=== PATIENT | female | born 1955 | race Caucasian/White ===

== ENCOUNTER 2016-07-08 07:35 | Inpatient (IN) | payer MEDICARE, BC ==
[~2016-07-08 07:35] MED LIST: ALPRAZOLAM XR3 MG PO; ALPRAZOLAM0.5 M3 PO; ANTI-DIARRHEAL2 M2 PO; ATENOLOL50 MG PO; AZITHROMYCIN250 M1 PO; DARVOCET-N 1001 TAB PO; GAVILAX17 G2 PO; HYDROCODON-ACE1 EA16 PO; KLONOPIN2 M1 PO; LATANOPROST2.5 M1 OP; LINZESS290 MC1 PO; LISINOPRIL5 M1; MAGNESIUM CITR296 M1 PO; MIRALAX17 G2 PO; PREDNISONE20 M1 PO; QUETIAPINE FUM400 M1 PO; SEROQUEL300 MG PO; TRAMADOL HCL50 M2; TRAMADOL HCL50 MG PO; VENTOLIN HFA18 G2 INH; VENTOLIN HFA18 G2 PO; XALATAN2.5 ML OP; ZOFRAN ODT4 MG PO; ZOLPIDEM TARTRA10 MG PO
[2016-07-08] MEDS ORDERED: XARELTO10 M1 PO (07:47)
[2016-07-08] MEDS ORDERED: PRINIVIL10 M1 PO (07:55)
[2016-07-08] MEDS ORDERED: XARELTO20 M1 PO (07:56)
[2016-07-08] MEDS ORDERED: CATAPRES-TTS 11 EACH TP (08:03)
[2016-07-08] MEDS ORDERED: NEURONTIN300 M1 PO (08:03)
[2016-07-08] MEDS ORDERED: PROPRANOLOL HCL80 M3 PO (08:03)
[2016-07-08 08:36] LABS: BASO % 0.6 % (0-2); EOS % 1.6 % (0-7); EOSINOPHIL ABSOLUTE COUNT 0.1 tho/cmm (0.0-0.7); HCT-HEMATOCRIT 34.1 % (34.0-49.0); HGB-HEMOGLOBIN 11.1 gm/dl (12.0-15.5); IMMATURE GRANULOCYTES ABSOLUTE 0.02 tho/cmm (0-0.03); IMMATURE GRANULOCYTES PERCENT 0.4 % (0-0.3); LYMPH % 33.7 % (20-45); LYMPH ABSOLUTE COUNT 1.7 tho/cmm (0.8-4.5); MCHC MEAN CORPUSCULAR HGB CONC 32.6 % (32.0-36.0); MCV (MEAN CELL VOLUME) 101.5 fl (82.0-96.0); MEAN PLATELET VOLUME 9.9 cmc (9.4-12.4); MONO % 8.4 % (0-12); MONOCYTE ABSOLUTE COUNT 0.4 tho/cmm (0.0-1.2); NEUTROPHIL ABSOLUTE COUNT 2.8 tho/cmm (1.6-8.0); NEUTROPHIL-AUTOMATED 2.8 tho/cmm (1.6-8.0); NEUTROPHILS % 55.3 % (40-80); PLATELET COUNT 168 tho/cmm (150-450); RED BLOOD COUNT 3.36 mil/cmm (4.00-5.20); RED CELL DISTRIBUTION WIDTH 14.5 % (12.4-16.4); WHITE BLOOD COUNT 5.1 tho/cmm (4.0-10.0)
[2016-07-08 08:41] LABS: URINE BILIRUBIN SMALL (NEG); URINE BLOOD SMALL (NEG); URINE GLUCOSE (UA) NEGATIVE (NEG); URINE KETONE SMALL (NEG); URINE LEUKOCYTE ESTERASE POSITIVE (NEG); URINE NITRITE POSITIVE (NEG); URINE PROTEIN SMALL (NEG)
[2016-07-08 08:42] LABS: URINE APPEARANCE CLOUDY; URINE COLOR YELLOW
[2016-07-08 08:46] LABS: ANION GAP 8 mmol/L (0-20); BLOOD UREA NITROGEN 20 mg/dl (6-24); CALCIUM 8.2 mg/dl (8.5-10.5); CARBON DIOXIDE-VENOUS 28 mmol/L (22-32); CHLORIDE 111 mmol/l (96-110); CREATININE 0.82 mg/dl (0.50-1.10); GLUCOSE 132 mg/dL (70-110); POTASSIUM 4.4 mmol/L (3.7-5.1); SODIUM 143 mmol/L (135-145); eGFR VALUE FOR BLACK 89 mL/Min
[2016-07-08 08:48] LABS: URINE BACTERIA 4+; URINE WBC 30-40 /[HPF] (0-5)
[2016-07-08 08:53] LABS: INR 1.2 INR (0.9-1.1); PROTHROMBIN TIME 14.4 SECONDS (9.0-13.6)
[2016-07-08 09:09] LABS: PROCALCITONIN <0.05 ng/ml (0.05-0.09)
[2016-07-08] MEDS ORDERED: ROBAFEN-DM SYR118 ML PO (09:10)
[2016-07-08] MEDS ORDERED: ASPIRIN325 M3 PO (09:16)
[2016-07-09 05:48] LABS: BASO % 0.7 % (0-2); EOS % 3.4 % (0-7); EOSINOPHIL ABSOLUTE COUNT 0.1 tho/cmm (0.0-0.7); HCT-HEMATOCRIT 33.7 % (34.0-49.0); HGB-HEMOGLOBIN 11.1 gm/dl (12.0-15.5); IMMATURE GRANULOCYTES ABSOLUTE 0.01 tho/cmm (0-0.03); IMMATURE GRANULOCYTES PERCENT 0.2 % (0-0.3); LYMPH % 37.6 % (20-45); LYMPH ABSOLUTE COUNT 1.5 tho/cmm (0.8-4.5); MCH (MEAN CORPUSCULAR HGB) 33.5 pg (28.0-32.0); MCHC MEAN CORPUSCULAR HGB CONC 32.9 % (32.0-36.0); MCV (MEAN CELL VOLUME) 101.8 fl (82.0-96.0); MEAN PLATELET VOLUME 9.9 cmc (9.4-12.4); MONO % 11.1 % (0-12); MONOCYTE ABSOLUTE COUNT 0.5 tho/cmm (0.0-1.2); NEUTROPHIL ABSOLUTE COUNT 1.9 tho/cmm (1.6-8.0); NEUTROPHIL-AUTOMATED 1.9 tho/cmm (1.6-8.0); PLATELET COUNT 149 tho/cmm (150-450); RED BLOOD COUNT 3.31 mil/cmm (4.00-5.20); RED CELL DISTRIBUTION WIDTH 14.2 % (12.4-16.4); WHITE BLOOD COUNT 4.1 tho/cmm (4.0-10.0)
[2016-07-09 05:59] LABS: ANION GAP 10 mmol/L (0-20); BLOOD UREA NITROGEN 12 mg/dl (6-24); CALCIUM 8.1 mg/dl (8.5-10.5); CARBON DIOXIDE-VENOUS 26 mmol/L (22-32); CHLORIDE 112 mmol/l (96-110); CREATININE 0.74 mg/dl (0.50-1.10); GLUCOSE 92 mg/dL (70-110); POTASSIUM 4.5 mmol/L (3.7-5.1); SODIUM 143 mmol/L (135-145); eGFR VALUE FOR BLACK >90 mL/Min
[2016-07-10] MEDS ORDERED: CEFTIN250 MG/51 PO (16:21)
[2016-07-10] MEDS ORDERED: CEFUROXIME250 M1 PO (16:22)
[2016-08-20] MEDS ORDERED: FLOMAX0.4 M1 PO (14:38)
[2016-08-20] MEDS ORDERED: TAB-A-VITE1 EAC1 PO (14:39)
[2016-08-20] MEDS ORDERED: TYLENOL EXTRA500 M1 PO (14:54)
[2016-08-20] MEDS ORDERED: ASPIRIN325 M3 PO (14:55)
[2016-08-22] MEDS ORDERED: STOP THE FOLLOWING: (10:23)
[2016-09-03] MEDS ORDERED: BACTRIM DS TAB1 EAC2 PO (12:15)
[2016-09-03] MEDS ORDERED: CULTURELLE1 EAC1 PO (12:16)
[2016-09-03] MEDS ORDERED: DELTASONE20 MG PO (12:22)
== END 2016-07-10 17:17 | disposition other institution (70) | DRG 690 ==
LOC: EDMED 07:35 → EMR2 11:52 → 5WE 14:44
PROVIDERS: Emergency Medicine; ADMIT Internal Medicine
DX: N39.0 Urinary tract infection, site not specified (principal); I95.9 Hypotension, unspecified; E80.1 Porphyria cutanea tarda; B96.1 Klebsiella pneumoniae [K. pneumoniae] as the cause of diseases classified elsewhere; J44.9 Chronic obstructive pulmonary disease, unspecified; E11.9 Type 2 diabetes mellitus without complications; R91.8 Other nonspecific abnormal finding of lung field; R55 Syncope and collapse; F31.9 Bipolar disorder, unspecified; D64.9 Anemia, unspecified; F41.9 Anxiety disorder, unspecified; Z79.82 Long term (current) use of aspirin; Z23 Encounter for immunization
CPT/HCPCS: G0009; G0480; G8987-GO-CJ; G8988-GO-CI; G8989-GO-CJ; J0696; J2543; J3370; J7030; J7050; P9612; Q9967

== ENCOUNTER 2016-07-14 14:14 | Inpatient (IN) | payer MEDICARE, BC ==
[~2016-07-14 14:14] MED LIST changes: +ASPIRIN325 M3 PO; +CATAPRES-TTS 11 EACH TP; +CEFTIN250 MG/51 PO; +CEFUROXIME250 M1 PO; +NEURONTIN300 M1 PO; +PRINIVIL10 M1 PO; +PROPRANOLOL HCL80 M3 PO; +ROBAFEN-DM SYR118 ML PO; +XARELTO10 M1 PO; +XARELTO20 M1 PO
[2016-07-14 14:56] LABS: BASO % 0.3 % (0-2); BASO ABSOLUTE COUNT 0.1 tho/cmm (0.0-0.2); EOS % 0.5 % (0-7); EOSINOPHIL ABSOLUTE COUNT 0.1 tho/cmm (0.0-0.7); HCT-HEMATOCRIT 19.3 % (34.0-49.0); HGB-HEMOGLOBIN 6.4 gm/dl (12.0-15.5); IMMATURE GRANULOCYTES ABSOLUTE 0.15 tho/cmm (0-0.03); IMMATURE GRANULOCYTES PERCENT 0.8 % (0-0.3); LYMPH % 10.9 % (20-45); MCH (MEAN CORPUSCULAR HGB) 33.9 pg (28.0-32.0); MCHC MEAN CORPUSCULAR HGB CONC 33.2 % (32.0-36.0); MCV (MEAN CELL VOLUME) 102.1 fl (82.0-96.0); MONO % 12.4 % (0-12); MONOCYTE ABSOLUTE COUNT 2.2 tho/cmm (0.0-1.2); NEUTROPHIL ABSOLUTE COUNT 13.5 tho/cmm (1.6-8.0); NEUTROPHIL-AUTOMATED 13.5 tho/cmm (1.6-8.0); NEUTROPHILS % 75.1 % (40-80); PLATELET COUNT 253 tho/cmm (150-450); RED BLOOD COUNT 1.89 mil/cmm (4.00-5.20)
[2016-07-14 15:09] LABS: URINE BILIRUBIN NEGATIVE (NEG); URINE BLOOD MODERATE (NEG); URINE GLUCOSE (UA) SMALL (NEG); URINE KETONE SMALL (NEG); URINE LEUKOCYTE ESTERASE POSITIVE (NEG); URINE NITRITE NEGATIVE (NEG); URINE PROTEIN MODERATE (NEG)
[2016-07-14 15:11] LABS: INR 1.6 INR (0.9-1.1); PROTHROMBIN TIME 19.1 SECONDS (9.0-13.6)
[2016-07-14 15:11] LABS: URINE APPEARANCE HAZY; URINE COLOR YELLOW
[2016-07-14 15:16] LABS: URINE AMORPHOUS 1+; URINE BACTERIA 1+; URINE EPITHELIAL CELLS 0 /[HPF] (0-10); URINE RBC 15-20 /[HPF] (0-5)
[2016-07-14 15:18] LABS: ALB/GLOB RATIO 0.6 (0.8-2.0); ALBUMIN 2.8 g/dl (3.5-5.0); ALKALINE PHOSPHATASE 62 U/L (33-138); ALT/SGPT 28 U/L (12-78); BILIRUBIN,TOTAL 0.4 mg/dl (0-1.5); BLOOD UREA NITROGEN 21 mg/dl (6-24); CALCIUM 8.2 mg/dl (8.5-10.5); CARBON DIOXIDE-VENOUS 26 mmol/L (22-32); CHLORIDE 106 mmol/l (96-110); CREATININE 0.88 mg/dl (0.50-1.10); GLUCOSE 126 mg/dL (70-110); SODIUM 141 mmol/L (135-145); eGFR VALUE FOR BLACK 82 mL/Min
[2016-07-14 15:19] LABS: ANION GAP 13 mmol/L (0-20); AST/SGOT 41 U/L (10-40); POTASSIUM 4.1 mmol/L (3.7-5.1)
[2016-07-14 15:33] LABS: PROCALCITONIN 0.14 ng/ml (0.05-0.09)
[2016-07-14 16:13] LABS: BASO % 0.4 % (0-2); EOS % 0.5 % (0-7); EOSINOPHIL ABSOLUTE COUNT 0.1 tho/cmm (0.0-0.7); IMMATURE GRANULOCYTES ABSOLUTE 0.09 tho/cmm (0-0.03); IMMATURE GRANULOCYTES PERCENT 0.9 % (0-0.3); LYMPH % 11.8 % (20-45); LYMPH ABSOLUTE COUNT 1.2 tho/cmm (0.8-4.5); MCV (MEAN CELL VOLUME) 101.2 fl (82.0-96.0); MEAN PLATELET VOLUME 10.2 cmc (9.4-12.4); MONO % 9.1 % (0-12); MONOCYTE ABSOLUTE COUNT 0.9 tho/cmm (0.0-1.2); NEUTROPHIL ABSOLUTE COUNT 7.8 tho/cmm (1.6-8.0); NEUTROPHIL-AUTOMATED 7.8 tho/cmm (1.6-8.0); NEUTROPHILS % 77.3 % (40-80); PLATELET COUNT 148 tho/cmm (150-450); RED BLOOD COUNT 3.32 mil/cmm (4.00-5.20); WHITE BLOOD COUNT 10.1 tho/cmm (4.0-10.0)
[2016-07-14 16:14] LABS: HCT-HEMATOCRIT 33.6 % (34.0-49.0); HGB-HEMOGLOBIN 11.2 gm/dl (12.0-15.5); MCH (MEAN CORPUSCULAR HGB) 33.7 pg (28.0-32.0); MCHC MEAN CORPUSCULAR HGB CONC 33.3 % (32.0-36.0)
[2016-07-14 17:10] LABS: URINE SODIUM-RANDOM 65 mmol/L (20-110)
[2016-07-15 05:24] LABS: BASO % 0.4 % (0-2); EOS % 0.7 % (0-7); EOSINOPHIL ABSOLUTE COUNT 0.1 tho/cmm (0.0-0.7); HCT-HEMATOCRIT 31.6 % (34.0-49.0); HGB-HEMOGLOBIN 10.5 gm/dl (12.0-15.5); IMMATURE GRANULOCYTES ABSOLUTE 0.12 tho/cmm (0-0.03); IMMATURE GRANULOCYTES PERCENT 1.1 % (0-0.3); LYMPH % 13.2 % (20-45); LYMPH ABSOLUTE COUNT 1.4 tho/cmm (0.8-4.5); MCH (MEAN CORPUSCULAR HGB) 33.4 pg (28.0-32.0); MCHC MEAN CORPUSCULAR HGB CONC 33.2 % (32.0-36.0); MCV (MEAN CELL VOLUME) 100.6 fl (82.0-96.0); MEAN PLATELET VOLUME 10.3 cmc (9.4-12.4); MONO % 12.8 % (0-12); MONOCYTE ABSOLUTE COUNT 1.4 tho/cmm (0.0-1.2); NEUTROPHIL ABSOLUTE COUNT 7.6 tho/cmm (1.6-8.0); NEUTROPHIL-AUTOMATED 7.6 tho/cmm (1.6-8.0); NEUTROPHILS % 71.8 % (40-80); PLATELET COUNT 140 tho/cmm (150-450); RED BLOOD COUNT 3.14 mil/cmm (4.00-5.20); RED CELL DISTRIBUTION WIDTH 13.8 % (12.4-16.4); WHITE BLOOD COUNT 10.6 tho/cmm (4.0-10.0)
[2016-07-15 05:32] LABS: ANION GAP 13 mmol/L (0-20); BLOOD UREA NITROGEN 14 mg/dl (6-24); CALCIUM 7.5 mg/dl (8.5-10.5); CARBON DIOXIDE-VENOUS 22 mmol/L (22-32); CHLORIDE 109 mmol/l (96-110); CREATININE 0.62 mg/dl (0.50-1.10); GLUCOSE 132 mg/dL (70-110); POTASSIUM 3.5 mmol/L (3.7-5.1); SODIUM 140 mmol/L (135-145); eGFR VALUE FOR BLACK >90 mL/Min
[2016-07-17 12:49] LABS: URINE BILIRUBIN NEGATIVE (NEG); URINE BLOOD MODERATE (NEG); URINE GLUCOSE (UA) MODERATE (NEG); URINE KETONE NEGATIVE (NEG); URINE LEUKOCYTE ESTERASE POSITIVE (NEG); URINE NITRITE NEGATIVE (NEG); URINE PROTEIN MODERATE (NEG); URINE SPECIFIC GRAVITY 1.015 (1.003-1.030)
[2016-07-17 12:50] LABS: URINE APPEARANCE CLEAR; URINE COLOR DARK YELLOW
[2016-07-17 13:02] LABS: URINE EPITHELIAL CELLS 0-2 /[HPF] (0-10); URINE RBC 0-1 /[HPF] (0-5); URINE WBC 0-2 /[HPF] (0-5)
[2016-07-19 05:19] LABS: BASO % 0.6 % (0-2); BASO ABSOLUTE COUNT 0.1 tho/cmm (0.0-0.2); EOS % 2.4 % (0-7); EOSINOPHIL ABSOLUTE COUNT 0.2 tho/cmm (0.0-0.7); HCT-HEMATOCRIT 32.3 % (34.0-49.0); HGB-HEMOGLOBIN 10.6 gm/dl (12.0-15.5); LYMPH % 14.4 % (20-45); LYMPH ABSOLUTE COUNT 1.5 tho/cmm (0.8-4.5); MCH (MEAN CORPUSCULAR HGB) 33.2 pg (28.0-32.0); MCHC MEAN CORPUSCULAR HGB CONC 32.8 % (32.0-36.0); MCV (MEAN CELL VOLUME) 101.3 fl (82.0-96.0); MEAN PLATELET VOLUME 10.1 cmc (9.4-12.4); MONO % 11.5 % (0-12); MONOCYTE ABSOLUTE COUNT 1.2 tho/cmm (0.0-1.2); NEUTROPHIL ABSOLUTE COUNT 7.3 tho/cmm (1.6-8.0); NEUTROPHIL-AUTOMATED 7.3 tho/cmm (1.6-8.0); NEUTROPHILS % 71.1 % (40-80); PLATELET COUNT 251 tho/cmm (150-450); RED BLOOD COUNT 3.19 mil/cmm (4.00-5.20); RED CELL DISTRIBUTION WIDTH 13.3 % (12.4-16.4); WHITE BLOOD COUNT 10.2 tho/cmm (4.0-10.0)
[2016-07-19 05:36] LABS: ANION GAP 12 mmol/L (0-20); BLOOD UREA NITROGEN 8 mg/dl (6-24); CALCIUM 7.6 mg/dl (8.5-10.5); CARBON DIOXIDE-VENOUS 25 mmol/L (22-32); CHLORIDE 108 mmol/l (96-110); CREATININE 0.53 mg/dl (0.50-1.10); GLUCOSE 134 mg/dL (70-110); POTASSIUM 3.2 mmol/L (3.7-5.1); SODIUM 142 mmol/L (135-145); eGFR VALUE FOR BLACK >90 mL/Min
[2016-07-23] MEDS ORDERED: VANCOMYCIN HCL250 M1 PO (12:35)
[2016-07-23] MEDS ORDERED: FLAGYL500 M1 PO (12:35)
[2016-07-23] MEDS ORDERED: PERCOCET 5-3251 EACH PO (12:40)
[2016-07-23] MEDS ORDERED: TYLENOL325 M2 PO (12:40)
[2016-07-23] MEDS ORDERED: NEURONTIN600 M1 PO (12:41)
[2016-07-23] MEDS ORDERED: NEURONTIN800 M1 PO (12:41)
[2016-08-20] MEDS ORDERED: FLOMAX0.4 M1 PO (14:38)
[2016-08-20] MEDS ORDERED: TAB-A-VITE1 EAC1 PO (14:39)
[2016-08-20] MEDS ORDERED: TYLENOL EXTRA500 M1 PO (14:54)
[2016-08-20] MEDS ORDERED: ASPIRIN325 M3 PO (14:55)
[2016-08-22] MEDS ORDERED: STOP THE FOLLOWING: (10:23)
[2016-09-03] MEDS ORDERED: BACTRIM DS TAB1 EAC2 PO (12:15)
[2016-09-03] MEDS ORDERED: CULTURELLE1 EAC1 PO (12:16)
[2016-09-03] MEDS ORDERED: DELTASONE20 MG PO (12:22)
== END 2016-07-23 13:44 | DRG 917 ==
LOC: EDMED 14:14 → EMR2 16:14 → PCUB 19:15 → 5WE 07-17 15:40
PROVIDERS: Emergency Medicine; ADMIT Internal Medicine
PROC: 0DSPXZZ Reposition Rectum, External Approach (ICD-10-PCS; principal; 2016-07-19)
DX: T65.891A Toxic effect of other specified substances, accidental (unintentional), initial encounter (principal); G92 Toxic encephalopathy; E80.1 Porphyria cutanea tarda; A04.7 Enterocolitis due to Clostridium difficile; I27.2 Other secondary pulmonary hypertension; F03.90 Unspecified dementia, unspecified severity, without behavioral disturbance, psychotic disturbance, mood disturbance, and anxiety; T42.6X5A Adverse effect of other antiepileptic and sedative-hypnotic drugs, initial encounter; F31.9 Bipolar disorder, unspecified; E11.9 Type 2 diabetes mellitus without complications; Z79.4 Long term (current) use of insulin; B18.2 Chronic viral hepatitis C; Z86.711 Personal history of pulmonary embolism; Z79.01 Long term (current) use of anticoagulants; I10 Essential (primary) hypertension; M79.7 Fibromyalgia; D53.9 Nutritional anemia, unspecified; K59.09 Other constipation; J44.9 Chronic obstructive pulmonary disease, unspecified; Z88.8 Allergy status to other drugs, medicaments and biological substances; R33.9 Retention of urine, unspecified; K62.3 Rectal prolapse
CPT/HCPCS: J0690; J1815; J2270; J2543; J7030

== ENCOUNTER 2016-11-05 14:45 | Emergency (ER) | payer MEDICARE, BC ==
[~2016-11-05] VITALS: Ht 180.3 cm; Wt 53.6 kg
[~2016-11-05 14:45] MED LIST changes: +BACTRIM DS TAB1 EAC2 PO; +CULTURELLE1 EAC1 PO; +DELTASONE20 MG PO; +FLAGYL500 M1 PO; +FLOMAX0.4 M1 PO; +NEURONTIN600 M1 PO; +NEURONTIN800 M1 PO; +PERCOCET 5-3251 EACH PO; +STOP THE FOLLOWING:; +TAB-A-VITE1 EAC1 PO; +TYLENOL EXTRA500 M1 PO; +TYLENOL325 M2 PO; +VANCOMYCIN HCL250 M1 PO
[2016-11-05] MEDS ORDERED: NEURONTIN100 M1 PO (15:51)
[2016-11-05] MEDS ORDERED: LOMOTIL 2.5-0.1 EACH PO (15:51)
[2016-11-05] MEDS ORDERED: GABAPENTIN800 M2 PO (15:52)
[2016-11-05] MEDS ORDERED: SKELAXIN800 M3 PO (15:52)
[2016-11-05] MEDS ORDERED: GLUCOPHAGE500 M3 PO (15:53)
[2016-11-05] MEDS ORDERED: POLYETHYLENE GL17 G1 PO (15:53)
[2016-11-05] MEDS ORDERED: SERTRALINE HCL50 M4 PO (15:54)
[2016-11-05] MEDS ORDERED: SYMBICORT 160-1 PUFF INH (15:54)
[2016-11-05 15:56] LABS: BASO % 0.3 % (0-2); EOS % 0.8 % (0-7); EOSINOPHIL ABSOLUTE COUNT 0.1 tho/cmm (0.0-0.7); HCT-HEMATOCRIT 42.1 % (34.0-49.0); HGB-HEMOGLOBIN 14.7 gm/dl (12.0-15.5); IMMATURE GRANULOCYTES ABSOLUTE 0.02 tho/cmm (0-0.03); IMMATURE GRANULOCYTES PERCENT 0.3 % (0-0.3); LYMPH % 23.8 % (20-45); LYMPH ABSOLUTE COUNT 1.4 tho/cmm (0.8-4.5); MCH (MEAN CORPUSCULAR HGB) 32.2 pg (28.0-32.0); MCHC MEAN CORPUSCULAR HGB CONC 34.9 % (32.0-36.0); MCV (MEAN CELL VOLUME) 92.3 fl (82.0-96.0); MEAN PLATELET VOLUME 11.2 cmc (9.4-12.4); MONO % 11.6 % (0-12); MONOCYTE ABSOLUTE COUNT 0.7 tho/cmm (0.0-1.2); NEUTROPHIL ABSOLUTE COUNT 3.8 tho/cmm (1.6-8.0); NEUTROPHIL-AUTOMATED 3.8 tho/cmm (1.6-8.0); NEUTROPHILS % 63.2 % (40-80); PLATELET COUNT 150 tho/cmm (150-450); RED BLOOD COUNT 4.56 mil/cmm (4.00-5.20); RED CELL DISTRIBUTION WIDTH 12.9 % (12.4-16.4); WHITE BLOOD COUNT 6.1 tho/cmm (4.0-10.0)
[2016-11-05] MEDS ORDERED: ULTRAM50 M1 PO (15:59)
[2016-11-05 16:10] LABS: ANION GAP 10 mmol/L (0-20); BLOOD UREA NITROGEN 28 mg/dl (6-24); CALCIUM 9.2 mg/dl (8.5-10.5); CARBON DIOXIDE-VENOUS 28 mmol/L (22-32); CHLORIDE 99 mmol/l (96-110); GLUCOSE 163 mg/dL (70-110); POTASSIUM 3.8 mmol/L (3.7-5.1); SODIUM 133 mmol/L (135-145); eGFR VALUE FOR BLACK >90 mL/Min
== END 2016-11-05 17:43 ==
LOC: EDMED → EDBD 14:45 → EDMED 15:49
PROVIDERS: Nurse Practitioner Family
DX: S92.311A Displaced fracture of first metatarsal bone, right foot, initial encounter for closed fracture (principal); S09.90XA Unspecified injury of head, initial encounter; I10 Essential (primary) hypertension; F31.9 Bipolar disorder, unspecified; Z88.8 Allergy status to other drugs, medicaments and biological substances; W19.XXXA Unspecified fall, initial encounter; Y92.002 Bathroom of unspecified non-institutional (private) residence as the place of occurrence of the external cause